=== PATIENT | female | born 1950 | race Caucasian/White ===

== ENCOUNTER 2022-04-15 06:23 | Day surgery (SDC) | payer OTHER ==
[2022-04-02 15:04] VITALS: BMI 31.0
[2022-04-15] MEDS ORDERED: LIDOCAINE 1%/EPI 1:100000 (20 ML MULTI DOSE VIAL) ONE (07:05)
[2022-04-15] MEDS ORDERED: TETRACAINE 0.5% OPHTH SOLN 2 ML BOTTLE ONE (07:05)
[2022-04-15] MEDS ORDERED: BUPIVACAINE HCL 50 ML ONE (07:05)
[2022-04-15] MEDS ORDERED: ceFAZolin SODIUM 1 GM VIAL ONE ×2 (07:05→08:34)
[2022-04-15] MEDS ORDERED: ERYTHROMYCIN 0.5% OPHTHALMIC OINTMENT 3.5 GM TUBE ONE (07:05)
[2022-04-15] MEDS ORDERED: PROPOFOL 20 ML ONE (07:17)
[2022-04-15] MEDS ORDERED: MIDAZOLAM HCL 2 MG/2 ML SINGLE DOSE VIAL ONE ×2 (07:17)
[2022-04-15] MEDS ORDERED: ONDANSETRON 4 MG/2 ML VIAL ONE ×2 (08:36→11:55)
[2022-04-15] MEDS ORDERED: DEXAMETHASONE SOD PHOSPHATE 4 MG/1 ML VIAL ONE (08:36)
[2022-04-15] MEDS ORDERED: oxyCODONE HCL 5 MG TABLET PO PRN (10:46)
[2022-04-15] MEDS ORDERED: ONDANSETRON 4 MG/2 ML VIAL IVPUSH PRN (10:46)
[2022-04-15] MEDS ORDERED: LACTATED RINGERS SOLUTION 1,000 ML IV SCH (11:00)
[2022-04-15] MEDS ORDERED: FENTANYL CITRATE/PF 50 MCG/ML VIAL ONE (11:35)
[2022-04-15] MEDS ORDERED: oxyCODONE HCL 5 MG TABLET ONE (12:22)
[2022-04-15] MEDS ORDERED: oxyCODONE HCL 5 MG TABLET PO ONE (12:25)
[2022-04-15 12:47] VITALS: TEMP 97.8
[2022-04-15 13:31] VITALS: BP 112/70; PULSE 74
== END 2022-04-15 13:20 | disposition home or self-care (01) ==
LOC: FASU 06:23
PROVIDERS: ATTEND Ophthalmology
PROC: 0KX10ZZ Transfer Facial Muscle, Open Approach (ICD-10-PCS; 2022-04-15)
PROC: 0JX10ZC Transfer Face Subcutaneous Tissue and Fascia with Skin, Subcutaneous Tissue and Fascia, Open Approach (ICD-10-PCS; 2022-04-15)
PROC: 0JB10ZZ Excision of Face Subcutaneous Tissue and Fascia, Open Approach (ICD-10-PCS; principal; 2022-04-15 08:31)
DX: H02.89 Other specified disorders of eyelid (principal); N95.0 Postmenopausal bleeding; Z85.828 Personal history of other malignant neoplasm of skin
CPT/HCPCS: 94760

== ENCOUNTER 2024-09-05 16:27 | Emergency (ER) | payer OTHER ==
[2024-09-05 16:48] VITALS: RESP 16; TEMP 98.9; BMI 26.4
[2024-09-05] MEDS: ACETAMINOPHEN 500 MG TABLET (FP) PO ONE (17:23)
[2024-09-05] MEDS ORDERED: ACETAMINOPHEN 325 MG TABLET (FP) ONE (17:25)
[2024-09-05] MEDS ORDERED: LIDOCAINE 4% PATCH TP ONE (17:27)
[2024-09-05] MEDS: ACETAMINOPHEN 325 MG TABLET (FP) PO ONE (17:30)
[2024-09-05] MEDS: LIDOCAINE 5% TOPICAL PATCH TP ONE (17:30)
[2024-09-05 18:21] LABS: BASO % 0.2 % (0-2.0); EOS % 0.9 % (0-4.5); HEMATOCRIT 38.9 % (32.4-45.2); HEMOGLOBIN 12.8 GM/dL (10.7-15.3); LYMPH % 40.7 % (8-40); MCH 26.9 pg (25.7-33.7); MCHC 32.9 g/dl (32.0-36.0); MEAN CELL VOLUME 81.7 fl (80-96); MEAN PLT VOLUME 8.4 fl (7.5-11.1); MONO % 7.3 % (3.8-10.2); NEUT % 50.9 % (42.8-82.8); PLATELET COUNT 218 10^3/uL (134-434); RBC 4.77 M/mm3 (3.60-5.2); RDW 16.3 % (11.6-15.6); WHITE BLOOD COUNT 7.4 K/mm3 (4.0-10.0)
[2024-09-05 18:41] LABS: POTASSIUM 4.2 mmol/L (3.5-5.1)
[2024-09-05 18:43] LABS: ALBUMIN 3.4 g/dl (3.4-5.0)
[2024-09-05 18:47] LABS: CREATININE 0.5 mg/dL (0.55-1.3)
[2024-09-05 18:48] LABS: BILIRUBIN,TOTAL 0.2 mg/dL (0.2-1); TOT PROT 7.1 g/dl (6.4-8.2)
[2024-09-05] MEDS ORDERED: CARBIDOPA/LEVODOPA 25/100 TABLET (FP) ONE (19:47)
[2024-09-05] MEDS: LIDOCAINE PATCH REMOVAL MC SCH (22:04)
[2024-09-05 22:33] VITALS: BP 117/72; PULSE 62
== END 2024-09-05 22:33 | disposition home or self-care (01) ==
LOC: JER 16:27
DX: R51.9 Headache, unspecified (principal); M54.2 Cervicalgia; W18.30XA Fall on same level, unspecified, initial encounter
CPT/HCPCS: 36415; 70450-TC; 72125-TC; 80053; 84439; 84443; 85025; 99284-25